=== PATIENT | female | born 1990 | race Caucasian/White ===

== ENCOUNTER 2017-06-09 17:00 | Inpatient (IN) | payer OTHER ==
[~2017-06-09] VITALS: Ht 162.6 cm; Wt 59.0 kg
--- NOTE | ~2017-06-09 | HP ---
Unit #: [id number] #: [id number] Patient: AGUSTÍN VELASQUEZ [id number] [place] [address] [id number] I MR#: [id number] NAME: AGUSTÍN VELASQUEZ. ROOM: P183 Age: 26 Sex: F Admission Date: 06/09/2017 : 1990 Attending Physician: Héctor Chin M.D. Admitting Physician: Héctor Chin M.D. Primary Care Physician: [facility] [place] HISTORY AND PHYSICAL HISTORY OF PRESENT ILLNESS Agustín is a 26-year-old female admitted on 06/09/2017 to [facility] for detox from heroin and methamphetamines. PAST MEDICAL HISTORY None. PAST SURGICAL HISTORY None. ALLERGIES None. SOCIAL HISTORY Smokes 1 pack of cigarettes daily. Denies alcohol use. Does report daily use of heroin and meth. She is currently single and living with her mother. FAMILY HISTORY Noncontributory. REVIEW OF SYSTEMS CONSTITUTIONAL: No fever or chills. HEENT: Denies any sore throat, ear pain or runny nose. CARDIOVASCULAR: Denies chest pain, irregular heart rhythm or palpitations. CHEST: Denies shortness of breath or cough. No hemoptysis. GASTROINTESTINAL: Denies nausea, vomiting, diarrhea or chronic constipation. ENDOCRINE: Denies history of increased thirst or urination. No recent significant weight loss or gain. GENITOURINARY: Denies dysuria, frequency, or hematuria. SKIN: Denies any rashes. HEMATOLOGIC: Denies history of increased bleeding or bruising. MUSCULOSKELETAL: Denies any hot, swollen joints. No generalized muscle pain. NEUROLOGIC: Denies problems with vision or speech. No frequent, severe headaches. No numbness, tingling or weakness in any extremities. Denies loss of bladder or bowel control. CURRENT MEDICATIONS None. PHYSICAL EXAMINATION GENERAL: Alert, oriented, in no acute distress. Unit #: [id number] #: [id number] Patient: AGUSTÍN VELASQUEZ VITAL SIGNS: Blood pressure 113/82, heart rate 101, respirations 20, temperature 99.3. HEIGHT: 5 feet 4. WEIGHT: 134 pounds. SKIN: Warm and dry without rash or lesion. HEENT: Normocephalic. TMs not viewed. Oral and nasal passages clear. Conjunctivae clear. PERRLA. EOMs intact. NECK: Supple without lymphadenopathy or thyromegaly. HEART: Regular rate and rhythm without murmur. LUNGS: Clear. ABDOMEN: Soft, nontender, without masses or hepatosplenomegaly. : Not done. EXTREMITIES: No evidence of cyanosis, clubbing or edema. Moves all without focal deficit. NEUROLOGICAL: Grossly within normal limits. Cranial Nerves: II: Visual lopez are intact. III, IV AND : Extraocular movements are intact. Pupils are equal, round and reactive to light. V: Facial sensation is grossly normal. VII: Facial movements and expression are normal. VIII: Auditory acuity grossly intact. IX, X: Uvula is midline. Phonation is normal. XI: Patient shrugs shoulders and turns head normally. XII: Tongue protrudes in the midline. Sensory and Motor Function: Sensory and motor sensation is grossly normal. Motor: moves all extremities well. Coordination: Gait is normal. Deep Tendon Reflexes: Intact. IMPRESSION Psychiatric admission. RECOMMENDATIONS PSYCHIATRIC: Per psychiatrist. MEDICAL: No contraindication to participate in facility's activities. MEDICAL PROGNOSIS Good. MEDICAL CONDITION Stable. Dictated by... Ruel Caceres/mitchell TD: 06/10/2017 16:22 JOB #: [id number] Unit #: [id number] #: [id number] Patient: AGUSTÍN VELASQUEZ HISTORY AND PHYSICAL Page 1 of 1 X RICHARD TERRELL APRN HISTORY AND PHYSICAL
--- NOTE | ~2017-06-09 | DS ---
Unit #: [id number] #: [id number] Patient: AGUSTÍN VELASQUEZ [id number] [facility] [address] [place] [address] [id number] MR#: [id number] NAME: AGUSTÍN VELASQUEZ. ROOM: 83 Age: 26 Sex: F Admission Date: 06/09/2017 : 1990 Discharge Date: 06/11/2017 Attending Physician: Héctor Chin M.D. Primary Care Physician: [facility] DISCHARGE SUMMARY REASON FOR ADMISSION The patient is a 26-year-old single white female admitted to the [address] [place] [address] for opioid detox. HOSPITAL COURSE The patient was admitted to the [address] [place] [address] and placed on routine detoxification protocol for opioids. Her stay in the hospital was a brief and uneventful one. She did not arouse for interview on 06/10. On 06/11, the patient requested discharged citing multiple reasons including the need for car repairs, court dates, etc. It was the suspicion of this physician that the patient had probably made arrangements for continuation of her substance use. Whatever the case, discharge was as per the patient's request ordered. FINAL DIAGNOSES Opioid use disorder. FOLLOWUP CARE Followup to take place through the auspices of community mental health resources. DISCHARGE MEDICATIONS No psychotropic or other medications were ordered at time of discharge. PROGNOSIS Considered fair. Dictated by... Héctor Chin M.D. CB/mitchell TD: 06/14/2017 16:37 JOB #: [id number] Unit #: [id number] #: [id number] Patient: AGUSTÍN VELASQUEZ DISCHARGE SUMMARY Page 1 of 1 X Héctor Chin MD DISCHARGE SUMMARY
--- NOTE | ~2017-06-09 | PA ---
Unit #: [id number] #: [id number] Patient: AGUSTÍN VELASQUEZ [id number] [place] [address] [id number] MR#: [id number] NAME: AGUSTÍN VELASQUEZ. ROOM: P183 Age: 26 Sex: F Admission Date: 06/09/2017 : 1990 Date of Assessment: 06/10/2017 Attending Physician: Héctor Chin M.D. Admitting Physician: Héctor Chin M.D. Primary Care Physician: [facility] PSYCHIATRIC ASSESSMENT IDENTIFYING INFORMATION The patient is a 26-year-old white female admitted for opioid dependence. CHIEF COMPLAINT None given. INFORMANT(S) Chart. Patient cannot be aroused for interview. HISTORY OF PRESENT ILLNESS The patient is a 26-year-old white female admitted to the hospital complaining of ongoing opiate use. The patient reports that she has been using illicitly obtained methadone as well as intravenous heroin. The patient states that she is "tired of living like this." The patient has no prior history of inpatient or outpatient psychiatric treatment. She has been using up to 2 grams of intravenous heroin on a daily basis. PAST PSYCHIATRIC HISTORY None reported. PAST MEDICAL HISTORY Noncontributory. MEDICATIONS None. ALLERGIES None. FAMILY HISTORY Noncontributory. SOCIAL HISTORY The patient lives with her boyfriend who is apparently clean and sober. She is not presently employed. MENTAL STATUS EXAMINATION Examination at this time reveals the patient to be a well-developed well-nourished white female who is sleeping soundly. Multiple attempts to arouse the patient are unsuccessful. ASSETS AND LIABILITIES The patient's assets are to be assessed. Liabilities: Lack of resources. Unit #: [id number] #: [id number] Patient: AGUSTÍN VELASQUEZ DIAGNOSTIC IMPRESSION Opioid use disorder. TREATMENT PLAN The patient remains hospitalized for safety and stabilization. Routine detoxification protocol for opioids has been initiated. The patient will participate in appropriate order of milieu activities. ESTIMATED LENGTH OF STAY 3 to 5 days. Dictated by... Klaudia Flood TD: 06/10/2017 13:12 JOB #: [id number] PSYCHIATRIC ASSESSMENT Page 1 of 1 X Héctor Chin MD PSYCHIATRIC ASSESSMENT
[~2017-06-09 17:00] MED LIST: ALPRAZOLAM PO; ATARAX PO; BACTRIM DS TABL1 TA2 PO; KEFLEX500 M1 PO; NO MEDICATIONS; PREDNISONE PO
[2017-06-10 11:29] LABS: URINE APPEARANCE CLEAR; URINE BILIRUBIN NEG (NEG); URINE BLOOD NEG (NEG); URINE COLOR YELLOW; URINE GLUCOSE NEG (NEG); URINE KETONE NEG (NEG); URINE LEUKOCYTE ESTERASE NEG (NEG); URINE NITRATE NEG (NEG); URINE PROTEIN NEG (NEG); URINE SPECIFIC GRAVITY 1.028 (1.003-1.035)
[2017-06-10 12:38] LABS: AMPHETAMINE POS (NEG); BARBITURATES NEG (NEG); BENZODIAZEPINES POS (NEG); COCAINE NEG (NEG); MARIJUANA NEG (NEG); OPIATES POS (NEG); TRICYCLIC ANTIDEPRESSANTS NEG (NEG); U METHADONE NEG (NEG)
== END 2017-06-11 12:45 | disposition home or self-care (01) | DRG 897 ==
LOC: P1E 19:09
PROVIDERS: Specialist
PROC: HZ2ZZZZ Detoxification Services for Substance Abuse Treatment (ICD-10-PCS; principal; 2017-06-09)
DX: F11.20 Opioid dependence, uncomplicated (principal); F17.210 Nicotine dependence, cigarettes, uncomplicated
CPT/HCPCS: 80307; 81003